=== PATIENT | male | born 1980 | race Hispanic/Latino ===

== ENCOUNTER 2022-08-08 22:34 | Emergency (ER) | payer OTHER ==
[2022-08-09] MEDS ORDERED: IOHEXOL 350 MG/ML 100ML INFUS..BTL IV ONE (01:19)
[2022-08-09 01:49] LABS: CREATININE 0.8 mg/dL (0.5-1.5); POTASSIUM 4.1 mmol/L (3.5-5.1)
[2022-08-09] MEDS ORDERED: ACETAMINOPHEN 325 MG TAB ONE (01:50)
[2022-08-09] MEDS ORDERED: ACETAMINOPHEN 325 MG TAB PO ONE (02:00)
[2022-08-09] MEDS ORDERED: CYCL-309 PO (03:45)
[2022-08-09] MEDS ORDERED: IBUP-1493 PO (03:45)
[2022-08-09 04:35] VITALS: BP 122/68
== END 2022-08-09 04:35 | disposition home or self-care (01) ==
LOC: EDH 22:34
DX: S30.0XXA Contusion of lower back and pelvis, initial encounter (principal); W01.0XXA Fall on same level from slipping, tripping and stumbling without subsequent striking against object, initial encounter; Y93.01 Activity, walking, marching and hiking; Y92.89 Other specified places as the place of occurrence of the external cause; Y99.8 Other external cause status
CPT/HCPCS: 99285; 80048; 36415; 70450; 72125; 71260; 74177; Q9967

== ENCOUNTER → 2025-04-01 | Emergency (ER) | payer MEDICAID, OTHER ==
[~2025-04-01] VITALS: Ht 162.6 cm; Wt 72.6 kg
[~2025-04-01] MED LIST: CYCL-309 PO; IBUP-1493 PO; LIDOCAINE PF 100MG/5ML (2%) SYRINGE 5ML ONE; OMEP40CA21 PO; PRED20TA3 PO
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
[2025-04-01] MEDS: CYCLOBENZAPRINE HCL 10 MG TABLET PO ONE (12:01)
--- NOTE | 2025-04-01 14:36 | HMCIMG ---
EXAM: CR Lumbar Spine, 3 View. CLINICAL HISTORY: LUMBOSACRAL PAIN AFTER FALL YESTERDAY. HISTORY OF PRIOR SURGERY COMPARISON: None provided. FINDINGS: BONES: No acute fracture or aggressive appearing osseous lesion. ALIGNMENT: Alignment is within normal limits. No significant scoliosis. DISCS / DEGENERATIVE CHANGES: Mild disc disease at L5-S1. SOFT TISSUES: The soft tissues are unremarkable. Prominent air-filled loops of small bowel measuring up to 3.5 cm. Recommend dedicated radiographs or CT imaging of the abdomen and pelvis for further evaluation. IMPRESSION: 1. No acute osseous injury. 2. Dilated small bowel loops up to 3.5 cm. Recommend dedicated abdominal/pelvic imaging for further evaluation. /[place]
[2025-04-01 14:47] VITALS: BP 131/77; PULSE 82; RESP 15; TEMP 98.5; O2SAT 98
== END ==
LOC: EDH 11:31
DX: S30.0XXA Contusion of lower back and pelvis, initial encounter (principal); M54.16 Radiculopathy, lumbar region; Z79.1 Long term (current) use of non-steroidal anti-inflammatories (NSAID); W18.39XA Other fall on same level, initial encounter; Y93.89 Activity, other specified; Y92.89 Other specified places as the place of occurrence of the external cause; Y99.8 Other external cause status
CPT/HCPCS: 99284; 96374; 72100; 96372; J1885; J1100; J2003; J2704; J3490